=== PATIENT | female | born 1985 | race Caucasian/White ===

== ENCOUNTER 2018-06-29 17:30 | Emergency (ER) | payer BC, SELFPAY ==
[2018-06-29 18:14] LABS: Urine Blood TRACE (NEG); Urine Glucose NEGATIVE (NEG); Urine Protein NEGATIVE (NEG); Urine pH 7.5 (5.0-7.0)
[2018-06-29] MEDS ORDERED: MORPHINE 4 MG/ML SYR ONE (18:35)
[2018-06-29] MEDS ORDERED: ONDANSETRON 4 MG/2 ML VIAL ONE (18:35)
[2018-06-29] MEDS ORDERED: FAMOTIDINE 20 MG/2 ML VIAL IV ONE (18:35)
[2018-06-29 19:04] LABS: Absolute Monocytes 0.5 K/uL (0.1-1.3); Absolute Neutrophil 3.3 K/uL (1.8-8.0); Basophils % 0.6 % (0-1.3); Eosinophils % 1.5 % (0-4.4); Hematocrit 42.8 % (36.0-45.0); Lymphocytes % 33.6 % (15.3-44.8); MPV 9.1 fL (7.6-11.3); Monocytes % 8.4 % (3.3-12.3); RBC Red Blood Cell Count 4.62 M/uL (3.86-4.86)
[2018-06-29 19:07] LABS: Albumin 4.1 g/dL (3.4-5.0); Bilirubin Direct 0.1 mg/dL (0-0.2); Bilirubin Total 0.3 mg/dL (0.2-1.0); Potassium 4.3 mmol/L (3.5-5.1); Protein, Total 7.7 g/dL (6.4-8.2)
--- NOTE | 2018-06-29 19:53 | RAD REPORT ---
EXAM DESCRIPTION: CT - Abdomen Pelvis W Contrast - 06/29/2018 7:29 pm CLINICAL HISTORY: Abdominal pain left-sided pain. COMPARISON: none. TECHNIQUE: Computed axial tomography of the abdomen pelvis was obtained. 100 cc Isovue-300 was admin istered intravenously. Oral contrast was not requested which limits evaluation of bowel. All CT scans are performed using dose optimization technique as appropriate and may include automated exposure control or mA/KV adjustment according to patient size. FINDINGS: The liver, spleen, pancreas, adrenal and kidneys appear unremarkable. There is no evidence of diverticulitis. The appendix appears normal. Tubal occlusion coils in place. An adnexal mass is not seen IMPRESSION: No acute abnormality is displayed.
--- NOTE | 2018-06-29 21:20 | ER ---
Nurse's Notes [facility] Name: Ashlie Johnson Age: 32 yrs Sex: Female : 1985 Arrival Date: 06/29/2018 Time: 17:30 Bed 24 Private MD: Diagnosis: Abdominal and pelvic pain Presentation: 06/29 17:44 Presenting complaint: Patient states: since about 330 today i started having a dull tw2 throbbing pain to my lower LEFT abdomen, it still hurts into my ribs and when i breathe or move. Transition of care: patient was not received from another setting of care. Onset of symptoms was June 29, 2018. Risk Assessment: Do you want to hurt yourself or someone else? Patient reports no desire to harm self or others. Initial Sepsis Screen: Does the patient meet any 2 criteria? No. Patient's initial sepsis screen is negative. Does the patient have a suspected source of infection? No. Patient's initial sepsis screen is negative. Care prior to arrival: None. 17:44 Method Of Arrival: Ambulatory tw2 17:44 Acuity: GARRETT 3 tw2 Triage Assessment: 17:45 General: Appears in no apparent distress. Behavior is calm, cooperative, appropriate tw2 for age. Pain: Complains of pain in abdomen. GI: Reports lower abdominal pain, upper abdominal pain. 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 - Social history:: Smoking status: . - Ebola Screening: : Patient denies exposure to infectious person Patient denies travel to an Ebola-affected area in the 21 days before illness onset. Screenin:47 Abuse screen: Denies threats or abuse. Nutritional screening: No deficits noted. tw2 Tuberculosis screening: No symptoms or risk factors identified. Fall Risk None identified. Assessment: 17:40 General: Appears in no apparent distress. Behavior is calm, cooperative, appropriate tw2 for age. Pain: Complains of pain in abdomen and left upper quadrant. Neuro: Level of Consciousness is awake, alert, obeys commands, Oriented to person, place, time, situation. Cardiovascular: Heart tones S1 S2 Patient's skin is warm and dry. Respiratory: Airway is patent Respiratory effort is even, unlabored, Respiratory pattern is regular, symmetrical, Breath sounds are clear bilaterally. GI: Bowel sounds present X 4 quads. Abd is soft X 4 quads Patient currently denies nausea, vomiting. : No signs and/or symptoms were reported regarding the genitourinary system. EENT: No signs and/or symptoms were reported regarding the EENT system. Derm: No signs and/or symptoms reported regarding the dermatologic system. Musculoskeletal: Range of motion:. 18:44 Reassessment: Patient appears in no apparent distress at this time. No changes from tw2 previously documented assessment. Patient and/or family updated on plan of care and expected duration. Pain level reassessed. Patient is alert, oriented x 3, equal unlabored respirations, skin warm/dry/pink. 19:19 Reassessment: Patient appears in no apparent distress at this time. Patient is alert, lp1 oriented x 3, equal unlabored respirations, skin warm/dry/pink. Patient states headache at this time; Lights dimmed for comfort; Patient aware of pending CT. 20:52 Reassessment: Reassessment: Patient denies pain at this time. mg2 Vital Signs: 17:45 BP 125 / 85; Pulse 76; Resp 17; Temp 98(O); Pulse Ox 99% on R/A; Pain 3/10; tw2 18:44 BP 109 / 82; Pulse 74; Resp 17; Pulse Ox 96% on R/A; tw2 19:30 BP 104 / 80; Pulse 64; Resp 16; Pulse Ox 98% on R/A; lp1 20:30 BP 102 / 69; Pulse 65; Resp 16; Pulse Ox 100% on R/A; lp1 21:32 BP 105 / 70; Pulse 65; Resp 18; Pulse Ox 100% on R/A; Pain 0/10; mg2 ED Course: 17:30 Patient arrived in ED. as 17:33 Jorge Traylor MD is Attending Physician. kdr 17:44 Collette Lima RN is Primary Nurse. tw2 17:45 Triage completed. tw2 17:46 Arm band placed on. tw2 17:46 Bed in low position. Call light in reach. Adult w/ patient. Pulse ox on. NIBP on. tw2 18:35 Inserted saline lock: 22 gauge in right antecubital area, using aseptic technique. tw2 Blood collected. 19:05 Report given to DARRIN De Dios. tw2 19:07 Attending Physician role handed off by Jorge Traylor MD 19:07 Herbert Brandt MD is Attending Physician. gs 19:10 Patient moved to MD via wheelchair. vm2 19:24 CT completed. Patient tolerated procedure well. Patient moved back from MD. vm2 21:32 No provider procedures requiring assistance completed. IV discontinued, intact, mg2 bleeding controlled, No redness/swelling at site. Pressure dressing applied. Administered Medications: 18:35 Drug: Zofran 4 mg Route: IVP; Site: right antecubital; tw2 21:32 Follow up: Response: No adverse reaction; Marked relief of symptoms mg2 18:38 Drug: morphine 4 mg Route: IVP; Site: right antecubital; tw2 21:32 Follow up: Response: No adverse reaction; Marked relief of symptoms mg2 18:40 Drug: Pepcid 20 mg Route: IVP; Site: right antecubital; tw2 21:31 Follow up: Response: No adverse reaction; Marked relief of symptoms mg2 Outcome: 21:20 Discharge ordered by . gs 21:33 Discharged to home ambulatory, with family. mg2 21:33 Condition: stable 21:33 Discharge instructions given to patient, family, Instructed on discharge instructions, follow up and referral plans. medication usage, Demonstrated understanding of instructions, follow-up care, medications, Prescriptions given X 2. 21:34 Patient left the ED. mg2 Signatures: Jorge Traylor MD MD kdr Martinez, Amelia as Va Ignacio, RN RN lp1 Collette Lima RN RN 2 Keira Jara 2 Herbert Brandt MD MD Ganga Vergara RN RN mg2 Corrections: (The following items were deleted from the chart) 21:33 20:52 Reassessment: lp1 mg2
--- NOTE | 2018-06-29 21:20 | EDPHYS ---
Physician Documentation [facility] Name: Ashlie Johnson Age: 32 yrs Sex: Female : 1985 Arrival Date: 06/29/2018 Time: 17:30 Bed 24 Private MD: ED Physician Herbert Brandt HPI: 06/29 18:18 This 32 yrs old Female presents to ER via Ambulatory with complaints of kdr Abdominal Pain. 18:18 The patient presents with abdominal pain. Onset: The symptoms/episode began/occurred kdr suddenly, at 15:30. The symptoms do not radiate. Associated signs and symptoms: Pertinent positives: nausea, Pertinent negatives: anorexia, blood in stools, chest pain, constipation, diarrhea, dysuria, fever, headache, hematuria, palpitations, shortness of breath, vaginal discharge, vomiting, vomiting blood. The symptoms are described as achy, crampy, intermittent, waxing/waning. Modifying factors: The symptoms are alleviated by Deep breathing and movement. Severity of pain: At its worst the pain was severe in the emergency department the pain has improved mildly. The patient has experienced a previous episode, A few months back had a similar episode and was evaluated and told she had a UTI. The patient has not recently seen a physician. 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 - Social history:: Smoking status: . - Ebola Screening: : Patient denies exposure to infectious person Patient denies travel to an Ebola-affected area in the 21 days before illness onset. ROS: 18:18 Constitutional: Negative for fever, chills, and weight loss, Eyes: Negative for injury, kdr pain, redness, and discharge, ENT: Negative for injury, pain, and discharge, Neck: Negative for injury, pain, and swelling, Cardiovascular: Negative for chest pain, palpitations, and edema, Respiratory: Negative for shortness of breath, cough, wheezing, and pleuritic chest pain, Back: Negative for injury and pain, : Negative for injury, bleeding, discharge, and swelling, MS/Extremity: Negative for injury and deformity, Skin: Negative for injury, rash, and discoloration, Neuro: Negative for headache, weakness, numbness, tingling, and seizure activity. Psych: Negative for depression, anxiety, suicide ideation, homicidal ideation, and hallucinations, Allergy/Immunology: Negative for hives, rash, and allergies, Endocrine: Negative for neck swelling, polydipsia, polyuria, polyphagia, and marked weight changes, Hematologic/Lymphatic: Negative for swollen nodes, abnormal bleeding, and unusual bruising. 18:18 Abdomen/GI: Positive for abdominal pain, Negative for nausea and vomiting, nausea, vomiting, and diarrhea, nausea, constipation, abdominal cramps, abdominal distension, anorexia, black/tarry stool, rectal pain, rectal bleeding, bowel incontinence. Exam: 18:18 Constitutional: This is a well developed, well nourished patient who is awake, alert, kdr and in no acute distress. Head/Face: Normocephalic, atraumatic. Eyes: Pupils equal round and reactive to light, extra-ocular motions intact. Lids and lashes normal. Conjunctiva and sclera are non-icteric and not injected. Cornea within normal limits. Periorbital areas with no swelling, redness, or edema. Neck: Trachea midline, no thyromegaly or masses palpated, and no cervical lymphadenopathy. Supple, full range of motion without nuchal rigidity, or vertebral point tenderness. No Meningismus. Chest/axilla: Normal chest wall appearance and motion. Nontender with no deformity. No lesions are appreciated. Cardiovascular: Regular rate and rhythm with a normal S1 and S2. No gallops, murmurs, or rubs. Normal PMI, no JVD. No pulse deficits. Respiratory: Lungs have equal breath sounds bilaterally, clear to auscultation and percussion. No rales, rhonchi or wheezes noted. No increased work of breathing, no retractions or nasal flaring. Back: No spinal tenderness. No costovertebral tenderness. Full range of motion. Skin: Warm, dry with normal turgor. Normal color with no rashes, no lesions, and no evidence of cellulitis. MS/ Extremity: Pulses equal, no cyanosis. Neurovascular intact. Full, normal range of motion. Neuro: Awake and alert, GCS 15, oriented to person, place, time, and situation. Cranial nerves II-XII grossly intact. Motor strength 5/5 in all extremities. Sensory grossly intact. Cerebellar exam normal. Normal gait. Psych: Awake, alert, with orientation to person, place and time. Behavior, mood, and affect are within normal limits. 18:18 Abdomen/GI: Inspection: abdomen appears normal, Bowel sounds: normal, Palpation: soft, mild abdominal tenderness, in the left upper quadrant. Vital Signs: 17:45 BP 125 / 85; Pulse 76; Resp 17; Temp 98(O); Pulse Ox 99% on R/A; Pain 3/10; tw2 18:44 BP 109 / 82; Pulse 74; Resp 17; Pulse Ox 96% on R/A; tw2 19:30 BP 104 / 80; Pulse 64; Resp 16; Pulse Ox 98% on R/A; lp1 20:30 BP 102 / 69; Pulse 65; Resp 16; Pulse Ox 100% on R/A; lp1 21:32 BP 105 / 70; Pulse 65; Resp 18; Pulse Ox 100% on R/A; Pain 0/10; mg2 MDM: 18:18 Data reviewed: vital signs, nurses notes, lab test result(s), radiologic studies. kdr Counseling: I had a detailed discussion with the patient and/or guardian regarding: the historical points, exam findings, and any diagnostic results supporting the discharge/admit diagnosis, lab results, radiology results, the need for outpatient follow up. 19:35 Patient medically screened. gs 21:19 Differential diagnosis: appendicitis, bowel obstruction, non-specific abd pain. gs Response to treatment: the patient's symptoms have markedly improved after treatment, and as a result, I will discharge patient. ED course: pt seen and examined results and careplan discussed. 06/29 17:56 Order name: Urine Dipstick--Ancillary (enter results) eb 06/29 17:56 Order name: Urine --Ancillary (enter results) 06/29 18:12 Order name: Basic Metabolic Panel [facility] 06/29 18:12 Order name: CBC with Diff [facility] 06/29 18:12 Order name: Creatinine for Radiology [facility] 06/29 18:12 Order name: Hepatic Function [facility] 06/29 18:12 Order name: Lipase [facility] 06/29 18:15 Order name: Urine --Ancillary; Complete Time: 21:10 EDMS 06/29 18:15 Order name: Urine Dipstick-Ancillary; Complete Time: 21:10 [facility] 06/29 19:05 Order name: Creatinine (Radiology Only); Complete Time: 21:10 [facility] 06/29 19:06 Order name: CBC with Automated Diff; Complete Time: 21:10 [facility] 06/29 19:08 Order name: Basic Metabolic Panel; Complete Time: 21:10 [facility] 06/29 19:08 Order name: Liver (Hepatic) Function; Complete Time: 21:10 [facility] 06/29 19:08 Order name: Lipase; Complete Time: 21:10 [facility] 06/29 18:12 Order name: IV Saline Lock; Complete Time: 18:44 [facility] 06/29 18:12 Order name: Labs collected and sent; Complete Time: 18:44 [facility] 06/29 18:12 Order name: CT Abd/Pelvis - W/Contrast [facility] 06/29 19:54 Order name: CT; Complete Time: 21:10 EDMS Administered Medications: 18:35 Drug: Zofran 4 mg Route: IVP; Site: right antecubital; tw2 21:32 Follow up: Response: No adverse reaction; Marked relief of symptoms mg2 18:38 Drug: morphine 4 mg Route: IVP; Site: right antecubital; tw2 21:32 Follow up: Response: No adverse reaction; Marked relief of symptoms mg2 18:40 Drug: Pepcid 20 mg Route: IVP; Site: right antecubital; tw2 21:31 Follow up: Response: No adverse reaction; Marked relief of symptoms mg2 Disposition: 06/29/18 21:20 Discharged to Home. Impression: Abdominal and pelvic pain. - Condition is Stable. - Discharge Instructions: Abdominal Pain, Adult, [id number]. - Prescriptions for Zofran 4 mg Oral Tablet - take 1 tablet by ORAL route every 12 hours As needed; 6 tablet. Pepcid 20 mg Oral Tablet - take 1 tablet by ORAL route every 12 hours; 30 tablet. - Medication Reconciliation Form, Thank You Letter, Antibiotic Education, Prescription Opioid Use form. - Follow up: Private Physician; When: 2 - 3 days; Reason: Re-evaluation by your physician. Signatures: Dispatcher [facility] Jorge Traylor MD MD [facility] Collette Lima RN RN tw2 Herbert Brandt MD MD [place], Ganga, RN RN mg2 Corrections: (The following items were deleted from the chart) 21:34 21:20 06/29/2018 21:20 Discharged to Home. Impression: Abdominal and pelvic pain. mg2 Condition is Stable. Forms are Medication Reconciliation Form, Thank You Letter, Antibiotic Education, Prescription Opioid Use. Follow up: Private Physician; When: 2 - 3 days; Reason: Re-evaluation by your physician. gs
[2018-06-29 22:22] VITALS: TEMP 98
[2018-06-29 22:26] VITALS: O2SAT 100
[2018-06-29 22:27] VITALS: BP 105/70
== END 2018-06-29 21:34 | disposition home or self-care (01) ==
LOC: ER 17:30
DX: R10.2 Pelvic and perineal pain (principal)
CPT/HCPCS: 36415; 74177; 80048; 80076; 81003; 81025; 83690; 85025; 96374; 96375; 99284; J2405; Q9967